=== PATIENT | male | born 1935 | race Caucasian/White ===

== ENCOUNTER → 2017-11-18 | Outpatient (CLI) | payer OTHER | LOC: FIMAGING 10:47 | PROVIDERS: ATTEND Physician Assistant Medical | DX: R31.0 Gross hematuria (principal); R93.41 Abnormal radiologic findings on diagnostic imaging of renal pelvis, ureter, or bladder ==

== ENCOUNTER 2017-12-17 13:25 | Observation (INO) | payer OTHER ==
[2017-12-17] MEDS ORDERED: levOFLOXACIN 500 MG/DEXTROSE 100 ML IV ONE (13:56)
[2017-12-17] MEDS ORDERED: LIDOCAINE 1% 2 ML INJ ID PRN (13:57)
[2017-12-17] MEDS ORDERED: LR 1,000 ML IV ONE (13:57)
--- NOTE | 2017-12-17 15:22 | PDHPUP ---
History & Physical Update H&P update statement: This history and physical update is based on an assessment of the patient which was completed after admission or registration (within 24 hours), but prior to the surgery/procedure. H&P update: no change in patient's condition since H&P completed
--- NOTE | 2017-12-17 15:25 | PDANEPAE ---
ANE Past Medical History - Cardiovascular History Hx Hypertension: Yes Hx Arrhythmias: Yes Hx Chest Pain: No Hx Coronary Artery / Peripheral Vascular Disease: No Hx CHF / Valvular Disease: No Hx Palpitations: Yes Cardiovascular History Comment: Hx of Afib,1st degree block, RBBB - Pulmonary History Hx COPD: No Hx Asthma/Reactive Airway Disease: No Hx Recent Upper Respiratory Infection: No Hx Oxygen in Use at Home: No Hx Sleep Apnea: No Sleep Apnea Screening Result - Last Documented: Positive - Neurologic History Hx Cerebrovascular Accident: No Hx Seizures: No Hx Dementia: No Neurologic History Comment: ? TIA prior to pacemaker placement - Endocrine History Hx Diabetes: No - Renal History Hx Renal Disorders: Yes Renal History Comment: BPH, Bladder calculi-removed several times in past. - Liver History Hx Hepatic Disorders: No - Neurological & Psychiatric Hx Hx Neurological and Psychiatric Disorders: No - Cancer History Hx Cancer: No - Congenital Disorder History Hx Congenital Disorders: No - GI History Hx Gastrointestinal Disorders: No - Other Health History Other Health History: BILATERAL HEARING AIDES. skin extremely fragile,prone to skin tears. BRUISES EASILY. Diffuse joint arthritis. - Chronic Pain History Chronic Pain: Yes (arthritis to joints) - Surgical History Prior Surgeries: HERNIA REPAIR X2 ONCE ON EACH SIDE. LITHOTRIPSY FOR BLADDER STONES WITHIN THE LAST 10 YEARS bilat hip replacements. pacemker placement ANE Review of Systems Review of Systems: - Exercise capacity METS (RN): 4 METS - Pacemaker Pacemaker Type: Permanent Pacer/Defib Pacemaker User Support Specialist: [employer] Pacemaker Model: [id number] Pacemaker Mode: DDDR Date Pacemaker Last Checked: 11/10/17 ANE Patient History - Allergies Allergies/Adverse Reactions: codeine [Codeine] Allergy (Intermediate, Verified 12/02/17 15:34) Anxiety sulfadoxine Allergy (Intermediate, Verified 12/02/17 15:34) Wheezing - Home Medications Home Medications: Acetaminophen [Tylenol 325mg (*)] 325 mg PO DAILY@03 11/27/17 [Last Taken ] - NPO status NPO Since - Liquids (Date): 12/17/17 NPO Since - Liquids (Time): 08:00 NPO Since - Solids (Date): 12/17/17 NPO Since - Solids (Time): 07:00 - Smoking Hx Smoking Status: Former smoker - Family Anes Hx Family Hx Anesthesia Complications: NONE ANE Labs/Vital Signs - Vital Signs Blood Pressure: 164/87 Heart Rate: 63 Respiratory Rate: 16 O2 Sat (%): 95 Height: 177.8 cm Weight: 68.039 kg ANE Physical Exam - Airway Neck exam: FROM Mallampati Score: Class 2 Mouth exam: normal dental/mouth exam - Pulmonary Pulmonary: no respiratory distress - Cardiovascular Cardiovascular: regular rate and rhythym - ASA Status ASA Status: II ANE Anesthesia Plan Anesthesia Plan: general endotracheal anesthesia
[2017-12-17] MEDS ORDERED: fentaNYL 100 MCG/2 ML INJ ONE ×3 (15:36→18:26)
[2017-12-17] MEDS ORDERED: PROPOFOL 200 MG/20 ML VIAL ONE (15:37)
[2017-12-17] MEDS ORDERED: LIDOCAINE 2% 100 MG/5 ML SYR ONE (15:37)
[2017-12-17] MEDS ORDERED: ROCURONIUM 50 MG/5 ML VIAL ONE (15:38)
[2017-12-17] MEDS ORDERED: LIDOCAINE 2% JELLY 20 ML (UROJECT) ONE (16:04)
[2017-12-17] MEDS ORDERED: ALBUTEROL 3 ML DEYVIAL IH PRN (17:28)
[2017-12-17] MEDS ORDERED: NALOXONE HCL 0.4 MG/ML INJ IVP PRN (17:28)
[2017-12-17] MEDS ORDERED: ONDANSETRON 4 MG/2 ML VIAL IVP PRN ×2 (17:28→17:36)
[2017-12-17] MEDS ORDERED: fentaNYL 100 MCG/2 ML INJ IVP PRN (17:28)
--- NOTE | 2017-12-17 17:29 | POSTANESTH ---
Post Anesthetic Evaluation Cardiovascular Status: Similar to Pre-Op Cond Respiratory Status: Similar to Pre-op Cond. Level of Consciousness/Mental Status: Mildly Sleepy, Arousable Pain Control: Adequate, Prn Tx Ordered Nausea/Vomiting Control: Adequate, Prn Tx Ordered Complications Possibly Related to Anesthesia: None Noted
--- NOTE | 2017-12-17 17:34 | POSTOPPROG ---
Post Op Note Date of Operation: 12/17/17 Surgeon: Filemon Castaneda (# [id number]) Anesthesia: GET(General Endotracheal) Pre-op Diagnosis: 1. BPH w/ obstruction 2. Multiple bladder calculi Post-op Diagnosis: 1. BPH w/ obstruction 2. Multiple bladder calculi Procedure: Complex cystolitholapaxy w/ holmium laser, TURP Findings: See op note Inf/Abcess present in the surg proc area at time of surgery?: No EBL: Minimal Complications: None Specimen(s): Prostate tissue
[2017-12-17] MEDS ORDERED: LIDOCAINE 2% JELLY 5 ML TUBE TP PRN (17:36)
[2017-12-17] MEDS ORDERED: PROMETHAZINE HCL 25 MG/ML INJ IVP PRN (17:36)
[2017-12-17] MEDS ORDERED: OPIUM/BELLADONNA ALKALO SUPP PR PRN (17:36)
[2017-12-17] MEDS ORDERED: HYDROCODONE/APAP 5/325 TAB PO PRN (17:36)
[2017-12-17] MEDS ORDERED: D5W 1/2 NS 1,000 ML IV SCH (17:45)
[2017-12-17 20:34] VITALS: RESP 16
[2017-12-17] MEDS: METOPROLOL TARTRATE 25 MG TAB PO SCH (22:09)
--- NOTE | 2017-12-17 22:11 | GOP ---
[f rep st] OPERATIVE REPORT DATE OF OPERATION: 12/17/2017 SURGEON: Filemon Castaneda MD ANESTHESIA: General endotracheal. PREOPERATIVE DIAGNOSIS: 1. Recurrent gross hematuria. 2. Recurrent benign prostatic hyperplasia with urinary obstruction, s/p Greenlight PVP. 3. Multiple bladder calculi (greater than 3 cm). POSTOPERATIVE DIAGNOSIS: 1. Recurrent gross hematuria. 2. Recurrent benign prostatic hyperplasia with urinary obstruction, s/p Greenlight PVP. 3. Multiple bladder calculi (greater than 3 cm). PROCEDURE PERFORMED: 1. Complex cystolitholapaxy with holmium laser. 2. Transurethral resection of prostate (redo > 1 year postop). FINDINGS: 1. Multiple bladder calculi, as mentioned in the body of the operative report. 2. Prostatic obstruction. SPECIMENS: Prostate tissue. ESTIMATED BLOOD LOSS: Minimal. INDICATIONS: This gentleman has had recent issues with gross hematuria. Urinary tract evaluation revealed the above findings. It was recommended that he undergo intraoperative management, which he presents for today. The indications for the procedures as well as potential risks and complications were discussed with the patient preoperatively. He appeared to understand, his questions were answered, and he wished to proceed. Written informed surgical consent was thereafter obtained. DESCRIPTION OF PROCEDURE: The patient was brought to the operating room and administered general endotracheal anesthesia. He was carefully placed in the dorsal lithotomy position on the cystoscopic table. The genital area was sterilely prepped with Betadine scrub and paint then draped in the usual sterile fashion. I inserted the 26-Sammarinese resectoscopic sheath with visual obturator and 30-degree and 70-degree lenses. Anterior urethra was unremarkable. Posterior urethra revealed significant circumferential BPH with some distortion of the prostatic fossa related to prior green GreenLight photo- vaporization of the prostate. Examination of the bladder revealed at least 3 or 4 bladder calculi with the largest measuring approximately 2 cm in diameter. Collective volume was greater than 3 cm. Examination of the remainder of the bladder revealed a moderately to heavily trabeculated mucosal pattern, but without any areas of abnormal erythema, tumors, nor foreign bodies. Ureteral orifices were normal in regard to shape and position along the trigone. It should also be mentioned that there were some imbedded smaller calculi within the submucosa of the prostatic adenoma. I then inserted the laser bridge through the resectoscopic sheath, followed by the 1000-micron holmium laser fiber. I then used the laser to fully fragment the calculi. These were removed from the bladder using the Ellik evacuator. I did not feel it was necessary to send these calculi fragments to Pathology. I then inserted the [employer] resectoscope with a standard resecting loop. Using bipolar instrumentation and normal saline with continuous flow, I resected the prostate adenoma circumferentially down to approximately capsular fibers. Care was taken to ensure that I did not resect anything distal to the verumontanum in order to minimize the risk of making him incontinent postoperatively. At the conclusion of the resection process, there did appear to be some possible lateral lobe adenoma that extended beyond the verumontanum. This adenoma was left not disturbed, again in an effort to minimize his risk of postoperative incontinence. A button electrode was then used to cauterize the surface of the prostatic fossa for further hemostatic purposes. All the prostate chips were removed from the bladder using an Ellik evacuator. At the conclusion of the procedure, the prostatic fossa was widely patent, the ureteral orifices were unharmed, and no resection had taken place distal to the verumontanum. The instruments were removed and a 22-Sammarinese, 3-way Rowe catheter inserted with 30 cc of sterile fluid placed in the balloon. Continuous irrigation was initiated. The catheter irrigated manually and the return was initially light pink but got slightly darker as the patient was transferred to his bed. He tolerated the procedure well overall. COMPLICATIONS: None. DISPOSITION: He was transferred to the recovery room in stable condition and will be admitted overnight for continuous bladder irrigation. /[id number]/MODL MTDD
[2017-12-18 04:16] VITALS: O2SAT 92
[2017-12-18 07:43] VITALS: BP 139/70; PULSE 72; TEMP 98.8
--- NOTE | 2017-12-18 09:50 | SOAPPROG ---
SOAP Progress Note Assessment/Plan: Assessment: POD 1 s/p TURP & complex cystolitholapaxy. Doing well. Plan: D/C home w/ Rowe. (d/c summ. # [id number]). Subjective: No complaints. He would prefer d/c home w/ Rowe rather than attempt voiding trial at this time. Objective: Vital Signs Temp Pulse Resp BP Pulse Ox 37.1 C 72 16 139/70 H 92 12/18/17 07:42 12/18/17 07:42 12/18/17 07:42 12/18/17 07:42 12/18/17 07:42 12/17/17 12/18/17 12/19/17 05:59 05:59 05:59 Intake Total 1824 449 Output Total 4266 9221 Balance -3508 -7783 Physical Exam - Physical Exam General Appearance: WD/WN, alert, no apparent distress Abdomen: non-tender, soft Male Genitalia: other (urine nearly completely clear on min. CBI) Skin: normal color, warm/dry Neuro/Psych: alert, normal mood/affect, oriented x 3 ICD10 Worksheet Patient Problems: Problems Problem Status Onset Bradycardia Acute Osteoarthritis of hip Acute Pre-syncope Acute
[2017-12-18] MEDS: METOPROLOL TARTRATE 25 MG TAB PO SCH (11:18)
--- NOTE | 2017-12-18 11:56 | ASMTCMCOM ---
CM Note CM Note Notes: Patient urology overflow. Medically cleared for discharge to home. Lives independent with . No needs identified. CM available should needs arise. Date Signed: 12/18/2017 11:55 AM Electronically Signed By:Sapna Tamayo RN
--- NOTE | 2017-12-18 12:58 | GDS ---
[f rep st] DISCHARGE SUMMARY ADMISSION DIAGNOSES: 1. Recurrent gross hematuria. 2. Recurrent benign prostatic hyperplasia with obstruction, status post GreenLight photo vaporizatio n of prostate. 3. Multiple bladder calculi. DISCHARGE DIAGNOSES: 1. Recurrent gross hematuria. 2. Recurrent benign prostatic hyperplasia with obstruction, status post GreenLight photovaporization of prostate. 3. Multiple bladder calculi. PROCEDURES: Complex cystolitholapaxy with holmium laser and transurethral prostate resection on 12/03. HOSPITAL COURSE: Refer to the operative report for details regarding the procedure. Postoperatively, the patient did well. He was maintained on continuous irrigation overnight followin g surgery. By the following morning, the urine was nearly clear off continuous irrigation. He was o therwise doing well and had no other complaints. His vital signs were stable and he was afebrile pos toperatively. The remainder of his physical exam was unremarkable postoperatively. He was ready for discharge on postoperative day 1. After discussing with the patient, we decided he would be dischar ged with his Rowe catheter over the weekend. Instructions will be given for him to remove the joo ter on Thursday. My office will touch base with him later that day to make sure he is adequat pardeep voiding following Rowe removal. He has been given activity restriction instructions. He will c ontinue on a regular diet. He will continue with his regular medications with the exception of Eliqu is (timing and resumption of this medication will be determined next week). He has also been given a prescription for [place] p.r.n. pain. Pathology results are pending at the time of discharge. /[id number]/MODL
== END 2017-12-18 12:06 | disposition home or self-care (01) ==
LOC: F3N 13:25
PROVIDERS: ADMIT Specialist; ATTEND Specialist
DX: N40.1 Benign prostatic hyperplasia with lower urinary tract symptoms (principal); N13.8 Other obstructive and reflux uropathy; N21.0 Calculus in bladder; I10 Essential (primary) hypertension; I48.91 Unspecified atrial fibrillation; I44.0 Atrioventricular block, first degree; I45.10 Unspecified right bundle-branch block; Z95.0 Presence of cardiac pacemaker
CPT/HCPCS: 52317; 52630; G0378; J1956; J2001; J2704; J3010

== ENCOUNTER 2018-02-19 08:33 | Inpatient (IN) | payer OTHER ==
--- NOTE | 2018-02-19 07:09 | PDHPUP ---
History & Physical Update H&P update statement: This history and physical update is based on an assessment of the patient which was completed after admission or registration (within 24 hours), but prior to the surgery/procedure. H&P update: H&P reviewed & patient examined, no change in patient's condition since H&P completed
[~2018-02-19 08:33] MED LIST: BUPI/epINEPH/KETOROLAC IU ONE; ROPIVACAINE 0.2% 80 MG, EPINEPHrine 0.2 MG, KETOROLAC TROMETHAMINE 30 MG in SYRINGE 0 ML IU ONE; TRANEXAMIC ACID 3,000 MG/50 ML BAG IRR ONE
[2018-02-19] MEDS ORDERED: DEXAMETHASONE 4 MG/ML VIAL IVP ONE (08:41)
[2018-02-19] MEDS ORDERED: FAMOTIDINE 20 MG TAB PO ONE (08:41)
[2018-02-19] MEDS ORDERED: ceFAZolin 2 GM/SWFI 2 GM/20 ML SYR IVP ONE (08:41)
[2018-02-19] MEDS ORDERED: ACETAMINOPHEN 325 MG TAB PO ONE (08:41)
--- NOTE | 2018-02-19 09:20 | PDANEPAE ---
ANE History of Present Illness Right hip arthroplasty revision ANE Past Medical History - Cardiovascular History Hx Hypertension: Yes Hx Arrhythmias: Yes Hx Chest Pain: No Hx Coronary Artery / Peripheral Vascular Disease: No Hx CHF / Valvular Disease: No Hx Palpitations: Yes Cardiovascular History Comment: Hx of Afib,1st degree block, RBBB - Pulmonary History Hx COPD: No Hx Asthma/Reactive Airway Disease: No Hx Recent Upper Respiratory Infection: No Hx Oxygen in Use at Home: No Hx Sleep Apnea: No Sleep Apnea Screening Result - Last Documented: Positive - Neurologic History Hx Cerebrovascular Accident: No Hx Seizures: No Hx Dementia: No Neurologic History Comment: ? TIA prior to pacemaker placement - Endocrine History Hx Diabetes: No Hypothyroid: No Hyperthyroid: No Obesity: no - Renal History Hx Renal Disorders: Yes Renal History Comment: BPH, Bladder calculi-removed several times in past. - Liver History Hx Hepatic Disorders: No - Neurological & Psychiatric Hx Hx Neurological and Psychiatric Disorders: No - Cancer History Hx Cancer: No - Congenital Disorder History Hx Congenital Disorders: No - GI History Hx Gastrointestinal Disorders: No - Other Health History Other Health History: BILATERAL HEARING AIDES. skin extremely fragile,prone to skin tears. BRUISES EASILY. Diffuse joint arthritis. - Chronic Pain History Chronic Pain: Yes (arthritis to joints) - Surgical History Prior Surgeries: TURP 2018. HERNIA REPAIR X2 ONCE ON EACH SIDE. LITHOTRIPSY FOR BLADDER STONES WITHIN THE LAST 10 YEARS bilat hip replacements. pacemker placement ANE Review of Systems Review of Systems: - Exercise capacity METS (RN): 4 METS - Pacemaker Pacemaker Type: Permanent Pacer/Defib Pacemaker Manual Lathe Machinist: [employer] Pacemaker Model: [id number] Pacemaker Mode: DDDR Pacemaker Set Rate: 60 Date Pacemaker Last Checked: 11/10/17 ANE Patient History - Allergies Allergies/Adverse Reactions: codeine [Codeine] Allergy (Intermediate, Verified 12/02/17 15:34) Anxiety - Home Medications Home medications: home medication list seen and reviewed Home Medications: Acetaminophen [Tylenol 325mg (*)] 325 mg PO DAILY PRN 11/27/17 [Last Taken 02/19 05:00] - NPO status NPO Since - Liquids (Date): 02/19/18 NPO Since - Liquids (Time): 07:00 NPO Since - Solids (Date): 02/18/18 NPO Since - Solids (Time): 23:45 - Smoking Hx Smoking Status: Former smoker - Family Anes Hx Family Hx Anesthesia Complications: NONE ANE Labs/Vital Signs - Vital Signs Blood Pressure: 165/96 Heart Rate: 60 Respiratory Rate: 16 O2 Sat (%): 95 Height: 177.8 cm Weight: 66.224 kg ANE Physical Exam - Airway Neck exam: decreased ROM Mouth exam: normal dental/mouth exam - Pulmonary Pulmonary: no respiratory distress, clear to auscultation - Cardiovascular Cardiovascular: regular rate and rhythym, systolic murmur, other (Mild 1/6) ANE Anesthesia Plan Anesthesia Plan: spinal Regional Anesthesia: single shot NB Total IV Anesthesia: Yes
[2018-02-19] MEDS ORDERED: LR 1,000 ML IV ONE (09:42)
[2018-02-19] MEDS ORDERED: BUPIVACAINE 0.5% 30 ML SDV ONE (10:34)
[2018-02-19] MEDS ORDERED: fentaNYL 100 MCG/2 ML INJ ONE (10:35)
[2018-02-19] MEDS ORDERED: PROPOFOL 200 MG/20 ML VIAL ONE ×2 (10:36)
[2018-02-19] MEDS: TRANEXAMIC ACID 3,000 MG in NS (SYRINGE) 50 ML IRR ONE ×2 (11:31→12:42)
[2018-02-19] MEDS ORDERED: PHENYLEPHRINE HCL 100 MCG/ML SYR ONE (11:34)
[2018-02-19] MEDS ORDERED: diphenhydrAMINE 25 MG CAP PO PRN (12:49)
[2018-02-19] MEDS ORDERED: BISACODYL 10 MG SUPP PR PRN (12:49)
[2018-02-19] MEDS ORDERED: oxyCODONE IR 5 MG TAB PO PRN (12:49)
[2018-02-19] MEDS ORDERED: CYCLOBENZAPRINE 10 MG TAB PO PRN (12:49)
[2018-02-19] MEDS ORDERED: MAGNESIUM HYDROXIDE 30 ML UDCUP PO PRN (12:49)
[2018-02-19] MEDS ORDERED: DIPHENOXYLATE/ATROPINE LOMOTIL 1 TAB PO PRN (12:49)
[2018-02-19] MEDS ORDERED: PROMETHAZINE HCL 25 MG SUPPR PR PRN (12:49)
[2018-02-19] MEDS ORDERED: POLYETHYLENE GLYCOL 3350 17 GM PKT PO PRN (12:49)
[2018-02-19] MEDS ORDERED: ONDANSETRON 4 MG/2 ML VIAL IVP PRN ×2 (12:49→13:17)
[2018-02-19] MEDS ORDERED: LACTULOSE 20 GM/30 ML UDCUP PO PRN (12:49)
[2018-02-19] MEDS ORDERED: TEMAZEPAM 15 MG CAP PO PRN (12:49)
[2018-02-19] MEDS ORDERED: METOCLOPRAMIDE 10 MG/2 ML VIAL IVP PRN (12:49)
[2018-02-19] MEDS ORDERED: ONDANSETRON DISINTEGRATING 4 MG TAB PO PRN (12:49)
[2018-02-19] MEDS ORDERED: traMADol 50 MG TAB PO PRN (12:49)
[2018-02-19] MEDS ORDERED: PROMETHAZINE HCL 25 MG/ML INJ IVP PRN (12:49)
--- NOTE | 2018-02-19 12:49 | POSTOPPROG ---
Post Op Note Date of Operation: 02/19/18 Surgeon: Malcolm Boyd Construction Ironworker: jane boyd Anesthesiologist: dr. winters Anesthesia: Spinal Pre-op Diagnosis: loose femoral stem in R BRADLEY Post-op Diagnosis: same Indication: right hip pain and loose femoral stem Procedure: R BRADLEY revision, femoral stem Findings: loose femoral stem Inf/Abcess present in the surg proc area at time of surgery?: No EBL: 100-500
[2018-02-19] MEDS ORDERED: LR 1,000 ML IV SCH (13:00)
--- NOTE | 2018-02-19 13:03 | PDMN ---
Medical Necessity Medical necessity: S560 hip arthroplasty PRINCESS INPT only : R BRADLEY revision
[2018-02-19] MEDS ORDERED: HYDROCODONE/APAP 5/325 TAB PO PRN (13:17)
[2018-02-19] MEDS ORDERED: NALOXONE HCL 0.4 MG/ML INJ IVP PRN (13:17)
[2018-02-19] MEDS ORDERED: fentaNYL 100 MCG/2 ML INJ IVP PRN (13:17)
[2018-02-19] MEDS ORDERED: ACETAMINOPHEN 500 MG TAB PO PRN (13:17)
[2018-02-19] MEDS ORDERED: ceFAZolin 2 GM/DEXTROSE 100 ML IV SCH (14:00)
[2018-02-19] MEDS: ACETAMINOPHEN 325 MG TAB PO SCH (17:58)
--- NOTE | 2018-02-19 18:32 | POSTANESTH ---
Post Anesthetic Evaluation Cardiovascular Status: Normal, Stable Respiratory Status: Normal, Stable Level of Consciousness/Mental Status: Can Participate in Eval Pain Control: Adequate, Prn Tx Ordered Nausea/Vomiting Control: Adequate, Prn Tx Ordered Complications Possibly Related to Anesthesia: None Noted (Pace maker checked. Pt. doing well. Legs moving minimial pain)
[2018-02-19] MEDS: ceFAZolin 2 GM/SWFI 2 GM/20 ML SYR IVP SCH (20:33)
[2018-02-19] MEDS: FAMOTIDINE 20 MG TAB PO SCH (20:34)
[2018-02-19] MEDS: SENNOSIDES/DOCUSATE SODIUM TAB PO SCH (20:34)
[2018-02-19] MEDS: METOPROLOL TARTRATE 25 MG TAB PO SCH (22:47)
[2018-02-20] MEDS: ACETAMINOPHEN 325 MG TAB PO SCH ×3 (00:05→11:24)
[2018-02-20] MEDS: ceFAZolin 2 GM/SWFI 2 GM/20 ML SYR IVP SCH (03:32)
--- NOTE | 2018-02-20 07:34 | GOP ---
[f rep st] OPERATIVE REPORT DATE OF OPERATION: 02/19/2018 SURGEON: Rober Davidson MD SHOW HORSE DRIVER: Colleen Davidson PA-C. PREOPERATIVE DIAGNOSIS: Right failed total hip arthroplasty. POSTOPERATIVE DIAGNOSIS: Right failed total hip arthroplasty. PROCEDURE PERFORMED: Right hip revision, one component femoral stem. FINDINGS: ESTIMATED BLOOD LOSS: 200 cc. INDICATIONS: Patient is an 83-year-old gentleman who underwent a right total hip arthroplasty that was cemented. Has progressed on to failure of the femoral stem, loose femoral stem. Risks and benefits of operative and nonoperative intervention were explained to the patient. Risks and benefits were discussed and informed consent was obtained. DESCRIPTION OF PROCEDURE: Patient was identified in the preoperative holding area. His right lower extremity was marked. He was then brought back to the operating room. After induction of anesthesia, he was placed left lateral side down, decubitus position with the right side up and prepped and draped in the usual sterile fashion. Time-out was taken confirming patient laterality, procedures, allergies, antibiotic status. We then proceeded with a posterolateral approach to the hip. I identified the skin over the greater trochanter. It was incised in line. Identified the IT band and TFLs which were divided in line. Then Charnley retractor was placed. Identified the greater trochanter, the loose piriformis and the short external rotators. Capsule was taken down to one complete tissue fold identified down to the lesser trochanter. The hip was then gently dislocated. The hip was examined. It was grossly loose. Cement over the shoulder was removed. We then were able to remove the stem. The stem came out complete with no cement attachment. We then were able to take out the entire cement mantle, with minimal difficulty. We removed the distal plug. Using a series of reamers, reamed up to a size 19 mm for our Cone body. We placed our conical 155 x 19 mm stem. We then placed a 19 mm Cone body. Took the hip through range of motion. It was stable with a 36 mm +0 head. Placed our final components in place which was 155 x 19 mm Cone conical stem with a 19 mm Cone body, +0. The head was a Biolox Delta ceramic 36 +0. The hip was stable to range of motion, was fit into position and taken up to hip flexion of 90 and external rotation to 60. We copiously irrigated. The capsule and piriformis were tagged through the adductors and repaired. We repaired the IT band and TFL. Repaired the skin in layers. Patient was placed in a sterile dressing. Awakened and brought to PACU in good condition with a well-perfused limb. The plan is to have the patient weight bearing as tolerated. He will be admitted to the orthopedic service. /[id number]/MODL MTDD
[2018-02-20] MEDS: FAMOTIDINE 20 MG TAB PO SCH (08:49)
[2018-02-20] MEDS ORDERED: APIXABAN 5 MG TAB PO SCH (09:00)
[2018-02-20] MEDS: METOPROLOL TARTRATE 25 MG TAB PO SCH (09:01)
[2018-02-20] MEDS: SENNOSIDES/DOCUSATE SODIUM TAB PO SCH (09:09)
--- NOTE | 2018-02-20 09:49 | SOAPPROG ---
CHARLETTE Progress Note Assessment/Plan: Assessment: Patient is doing well POD 1 s/p revision one component R BRADLEY due to loose femoral stem pain is well controlled on oral pain meds. patient reports no pain VTE ppx: recommend ASA 81 mg BID. Discussed eliquis with patient as prior to his TURP procedure, he was on eliquis intermediate teacher for a fib, but states he was having significant hematuria. I had asked patient to discuss with fx artist at preop appt. From an ortho standpoint, ASA 81 mg BID should be sufficient for VTE ppx. Recommended that patient follow up with fx artist to get their input in regards to usp anticoagulation. patient understands and will follow up outpatient. d/c planning: d/c to home today vs tomorrow pending PT and OT release. Patient does not want to go into rehab. Patient may benefit for home health pending participation with PT and OT today. Naa, his nurse, will keep me posted regarding patient and whether he would like to be d/c to home today vs tomorrow. activity precautions: posterior approach revision BRADLEY, rec abduction pillow for 6 weeks and posterior precautions. Plan: 02/20/18 09:45 Subjective: Vaibhav is doing well today, denies pain. discussed anticoagulation. patient has been off eliquis for several weeks due to hematuria and recent TURP. He would prefer not to take it if possible. he has not asked fx artist their recommendation. Objective: Vital Signs Temp Pulse Resp BP Pulse Ox 36.9 C 62 16 133/69 H 95 02/20/18 08:00 02/20/18 08:00 02/20/18 08:00 02/20/18 08:00 02/20/18 08:00 Laboratory Results 02/20/18 04:45 02/20/18 04:45 02/19/18 02/20/18 02/21/18 05:59 05:59 05:59 Intake Total 2200 130 Output Total 850 Balance 1350 130 RLE: incision dressing is clean and dry, NVI, +pf/df ICD10 Worksheet Patient Problems: Problems Problem Status Onset Status post revision of total hip replacement Acute Bradycardia Acute Osteoarthritis of hip Acute Pre-syncope Acute
[2018-02-20] MEDS ORDERED: ASPIRIN 81 MG CHEWABLE TAB PO SCH (10:00)
[2018-02-20 12:10] VITALS: BP 143/72
--- NOTE | 2018-02-23 16:15 | GDS ---
[f rep st] DISCHARGE SUMMARY ADMISSION DIAGNOSIS: Loose femoral stem prosthesis. DISCHARGE DIAGNOSIS: Loose femoral stem prosthesis. PROCEDURE: Revision femoral component of right total hip arthroplasty. VTE PROPHYLAXIS: Recommend aspirin twice daily versus Eliquis. Patient will follow up with coffee weigher to include his recommend as to whether he should resume Eliquis or he is safe to continue on baby aspirin twice a day. Patient would prefer aspirin 81 mg BID. BRIEF DESCRIPTION OF HOSPITAL STAY: Patient was admitted for an elective joint arthroplasty revision. The patient tolerated the procedure well and has passed physical therapy. The patient was given appropriate antibiotic prophylaxis and venous thromboembolism prophylaxis. The patient's pain was well controlled on oral pain medication, patient was holding down food, and had urinated. Decision was made to discharge the patient. The patient was given post- operative prescriptions pre-operatively. PLAN: Follow up with scheduled Dr. Davidson's office, 3 weeks. /[id number]/MODL MTDD
== END 2018-02-20 14:55 | disposition home health service (06) | DRG 468 ==
LOC: F3N 08:33
PROVIDERS: ADMIT Orthopaedic Surgery; ATTEND Orthopaedic Surgery
PROC: 0SPR0JZ Removal of Synthetic Substitute from Right Hip Joint, Femoral Surface, Open Approach (ICD-10-PCS; principal; 2018-02-19 10:15)
PROC: 0SRR0J9 Replacement of Right Hip Joint, Femoral Surface with Synthetic Substitute, Cemented, Open Approach (ICD-10-PCS; principal; 2018-02-19 10:15)
DX: T84.030A Mechanical loosening of internal right hip prosthetic joint, initial encounter (principal); Z96.641 Presence of right artificial hip joint; M06.9 Rheumatoid arthritis, unspecified; Z87.891 Personal history of nicotine dependence; Z95.0 Presence of cardiac pacemaker
CPT/HCPCS: 97116-GP; 97161-GP; 97165-GO; 97530-GP; 97535-GO; G8978-GP-CK; G8979-GP-CI; G8980-GP-CI; G8987-GO-CI; G8988-GO-CI; G8989-GO-CI; J0171; J0690; J1100; J1885; J2370; J2704; J3010

== ENCOUNTER → 2018-03-05 | Outpatient (CLI) | payer OTHER | LOC: FIMAGING 16:40 | PROVIDERS: ATTEND Orthopaedic Surgery | DX: M79.604 Pain in right leg (principal); M79.89 Other specified soft tissue disorders; Z96.649 Presence of unspecified artificial hip joint ==